=== PATIENT | female | born 1970 | race Caucasian/White ===

== ENCOUNTER → 2017-06-07 | Outpatient (CLI) | payer BC, OTHER ==
[~2017-06-07] MED LIST: GADOBUTROL 10 ML VIAL IVP ONE
== END ==
LOC: FIMAGING 19:06
PROVIDERS: ATTEND Physician Assistant Surgical
DX: Z98.1 Arthrodesis status (principal); G93.9 Disorder of brain, unspecified
CPT/HCPCS: A9585

== ENCOUNTER → 2018-06-12 | Outpatient (CLI) | payer OTHER | LOC: FIMAGING 09:45 | PROVIDERS: ATTEND Orthopaedic Surgery | DX: S83.242A Other tear of medial meniscus, current injury, left knee, initial encounter (principal); M23.42 Loose body in knee, left knee; M25.462 Effusion, left knee ==

== ENCOUNTER 2018-06-25 11:32 | Day surgery (SDC) | payer OTHER ==
--- NOTE | 2018-06-24 13:33 | GHP ---
[f rep st] PREOP HISTORY AND PHYSICAL DATE OF ADMISSION: 06/25/2018 HISTORY: The patient is a 48-year-old female who presents with left knee pain and swelling. In 2017, she slipped on the ice and she developed a significant effusion. She has anteromedial knee pain as well. She has had mechanical symptoms, including catching and some locking. She has tr ied anti-inflammatory medications, bracing her knee, rest, and continues to have progressive symptoms . Her left knee shows an effusion. She has tenderness around the medial patella, stable ligamentous exam, medial joint line tenderness, and a positive medial Judd test. Her MRI shows a posterior horn medial meniscal tear with a large chondral loose body in the medial aspect of the patellofemoral compartment. 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 I recommended arthroscopy of her left knee to address the meniscal tear, as well as to provide chondroplasty work and removal of the chondral loose body. On inspection of the patellof emoral articulation, she may benefit from a lateral release and I have her permission to do so. PAST MEDICAL HISTORY: She does have a history of allergic asthma. PAST SURGICAL HISTORY: She lists no surgeries. ALLERGIES: She has an allergy to latex and sulfa. MEDICATIONS: Include Cymbalta, gabapentin. SOCIAL HISTORY: She is a nonsmoker. REVIEW OF SYSTEMS: Negative for cardiopulmonary disease. 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 PHYSICAL EXAM: GENERAL: The patient is a well-developed, well-nourished female in no apparent distr ess. HEAD AND NECK: Normocephalic, atraumatic. CHEST: Clear. CARDIOVASCULAR: Regular rate and r hythm. ABDOMEN: Soft. NEUROLOGIC: She is alert and oriented x3. EXTREMITIES: Examination of the left knee shows range of motion from 5 degrees to 140 degrees and a moderate effusion. She is tende r around the medial patella and the medial synovium. Negative anterior drawer. No posterior sag. C ollateral ligaments are stable. Negative pivot shift. She does have medial joint line tenderness an d a positive medial Judd test. The skin is healthy. Neurovascular exam is intact. IMPRESSION: Left knee has a combination of meniscal pathology, as well as articular chondromalacia, largely patellofemoral with a fairly large loose body. She has an element of patellar maltracking. PLAN: Left knee arthroscopy, I will address the meniscal pathology and I am anticipating chondroplas ty and removal of the loose body. On assessment of her wear pattern of the patellofemoral joint, I h ave her permission to do a lateral release. She has signed a consent form and wishes to proceed. /[id number]/MODL
[2018-06-25] MEDS ORDERED: ceFAZolin 2 GM/DEXTROSE 100 ML IV ONE (11:46)
[2018-06-25] MEDS ORDERED: LR 1,000 ML IV SCH (11:46)
[2018-06-25] MEDS ORDERED: ACETAMINOPHEN 500 MG TAB PO ONE (11:46)
[2018-06-25] MEDS ORDERED: LR 1,000 ML IV ONE (11:50)
[2018-06-25] MEDS ORDERED: BUPIVACAINE 0.5% 30 ML SDV ONE (12:00)
[2018-06-25] MEDS ORDERED: DEPO METHYLPREDNISOLONE 40 MG/ML SDV ONE ×2 (12:00→14:25)
[2018-06-25] MEDS ORDERED: EPINEPHrine 1 MG/ML INJ ONE (12:01)
--- NOTE | 2018-06-25 12:29 | PDANEPAE ---
ANE History of Present Illness Left knee arthroscopy ANE Past Medical History - Cardiovascular History Hx Hypertension: No Hx Arrhythmias: No Hx Chest Pain: No Hx Coronary Artery / Peripheral Vascular Disease: No Hx CHF / Valvular Disease: No Hx Palpitations: No - Pulmonary History Hx COPD: No Hx Asthma/Reactive Airway Disease: Yes Hx Recent Upper Respiratory Infection: No Hx Oxygen in Use at Home: No Hx Sleep Apnea: No Sleep Apnea Screening Result - Last Documented: Negative Pulmonary History Comment: hx of allergy/ exercise induced asthma - Neurologic History Hx Cerebrovascular Accident: No Hx Seizures: No Hx Dementia: No Neurologic History Comment: hx of ACDF - Endocrine History Hx Diabetes: No Hypothyroid: No Hyperthyroid: No Obesity: no - Renal History Hx Renal Disorders: Yes Renal History Comment: hx of kidney stones. hx of uti's - Liver History Hx Hepatic Disorders: No - Neurological & Psychiatric Hx Hx Neurological and Psychiatric Disorders: Yes Neurological / Psychiatric History Comment: depression. anxiety - Cancer History Hx Cancer: No - Congenital Disorder History Hx Congenital Disorders: No - GI History GERD: no Hx Gastrointestinal Disorders: Yes Gastrointestinal History Comment: GERD. celiac disease - Other Health History Other Health History: wears glasses - Chronic Pain History Chronic Pain: Yes (left knee, lumbar and cervical) - Surgical History Prior Surgeries: ACDF c4-7 07/04/15. wisdom teeth. oral surgeries. lasik. artery repair s/p ANE Review of Systems Review of Systems: - Exercise capacity METS (RN): 4 METS ANE Patient History - Allergies Allergies/Adverse Reactions: adhesive tape Allergy (Verified 06/25/18 12:01) banana Allergy (Verified 06/25/18 12:01) gluten Allergy (Verified 06/25/18 12:01) latex Allergy (Verified 06/25/18 12:01) Milk Containing Products [dairy] Allergy (Verified 06/25/18 12:01) mold Allergy (Verified 06/25/18 12:01) orange juice [oranges] Allergy (Verified 06/25/18 12:01) peanut Allergy (Verified 06/25/18 12:01) Pork/Porcine Containing Products [pork] Allergy (Verified 06/25/18 12:01) Poultry [chicken] Allergy (Verified 06/25/18 12:01) Sulfa (Sulfonamide Antibiotics) Allergy (Verified 06/25/18 12:01) dust Allergy (Uncoded 06/25/18 12:01) lobster Allergy (Uncoded 06/25/18 12:01) trees Allergy (Uncoded 06/25/18 12:01) - Home Medications Home Medications: Aleve 2 tab BID 06/24/18 [Last Taken 06/20/18] Belbuca 06/24/18 [Last Taken 06/25/18] Cymbalta 06/24/18 [Last Taken 06/25/18] Gabapentin 06/24/18 [Last Taken 06/25/18] Herbals/Supplements -Info Only 06/24/18 [Last Taken 06/20/18] - NPO status NPO Status: no food or drink >8 hours NPO Since - Liquids (Date): 06/25/18 NPO Since - Liquids (Time): 10:00 NPO Since - Solids (Date): 06/24/18 NPO Since - Solids (Time): 22:00 - Anes Hx Anes Hx: no prior problems - Smoking Hx Smoking Status: Never smoked Marijuana use: No - Alcohol Use Alcohol Use: None - Family Anes Hx Family Anes Hx: none Family Hx Anesthesia Complications: none ANE Labs/Vital Signs - Vital Signs Blood Pressure: 134/97 Heart Rate: 81 Respiratory Rate: 16 O2 Sat (%): 95 Height: 165.1 cm Weight: 68 kg ANE Physical Exam - Airway Neck exam: decreased ROM Mallampati Score: Class 1 Mouth exam: normal dental/mouth exam, poor dentition - Pulmonary Pulmonary: no respiratory distress, no rales or rhonchi - Cardiovascular Cardiovascular: regular rate and rhythym, no murmur, rub, or gallop - ASA Status ASA Status: II ANE Anesthesia Plan Anesthesia Plan: general endotracheal anesthesia Regional Anesthesia: adductor canal FNB
[2018-06-25] MEDS ORDERED: MIDAZOLAM 2 MG/2 ML VIAL IVP ONE (12:35)
[2018-06-25] MEDS ORDERED: PROPOFOL 200 MG/20 ML VIAL ONE ×2 (13:06→14:00)
[2018-06-25] MEDS ORDERED: fentaNYL 250 MCG/5 ML INJ ONE (13:06)
[2018-06-25] MEDS ORDERED: PROPOFOL/EMULSION 500 MG/50 ML BOTTLE IV ONE (13:06)
--- NOTE | 2018-06-25 13:34 | PDHPUP ---
History & Physical Update H&P update statement: This history and physical update is based on an assessment of the patient which was completed after admission or registration (within 24 hours), but prior to the surgery/procedure. no change H&P update: no change in patient's condition since H&P completed (no change)
[2018-06-25] MEDS ORDERED: DEXAMETHASONE 4 MG/ML VIAL ONE (13:59)
[2018-06-25] MEDS ORDERED: ONDANSETRON 4 MG/2 ML VIAL ONE (13:59)
[2018-06-25] MEDS ORDERED: ACETAMINOPHEN 500 MG TAB PO PRN (15:04)
[2018-06-25] MEDS ORDERED: oxyCODONE IR 5 MG TAB PO PRN (15:04)
[2018-06-25] MEDS ORDERED: fentaNYL 100 MCG/2 ML INJ IVP PRN (15:04)
[2018-06-25] MEDS ORDERED: HYDROmorphONE/DILAUDID 2 MG/ML INJ IVP PRN (15:04)
[2018-06-25] MEDS ORDERED: HYDROCODONE/APAP 5/325 TAB PO PRN (15:04)
[2018-06-25] MEDS ORDERED: PROMETHAZINE HCL 25 MG/ML INJ IVP PRN (15:04)
[2018-06-25] MEDS ORDERED: ONDANSETRON 4 MG/2 ML VIAL IVP PRN (15:04)
[2018-06-25] MEDS ORDERED: NALOXONE HCL 0.4 MG/ML INJ IVP PRN (15:04)
--- NOTE | 2018-06-25 15:17 | GOP ---
[f rep st] OPERATIVE REPORT DATE OF OPERATION: SURGEON: Curtis Danielle MD ANESTHESIOLOGIST: Lisbeth Breen M.D. PREOPERATIVE DIAGNOSIS: Left knee medial meniscal tear, patellofemoral loose body, patellofemoral ch ondromalacia. POSTOPERATIVE DIAGNOSIS: Left knee medial meniscal tear, patellofemoral loose body, patellofemoral c hondromalacia. PROCEDURE PERFORMED: Left knee arthroscopy, partial medial meniscectomy, removal of patellofemoral c hondral loose body, patellofemoral chondroplasty. FINDINGS: Exam under anesthesia demonstrates good motion and ligament stability. She has a small ef fusion. On arthroscopy, the patellofemoral joint is significantly abnormal, the trochlear groove is fairly shallow, there is a chondral flap that is about 1.5 cm x 1 cm in dimension hinging on a flap. It originates from the medial aspect of the trochlear groove. It is still attached there and looks to be relatively acute. Beyond that, there is diffuse chondromalacia throughout the patellofemoral j oint, grade 2 to 3. Though the chondromalacia does favor the lateral aspect of the patellofemoral kamron int more so than the medial side, the new chondral defect is on the medial side. Overall assessment of the patellofemoral joint is it has fairly diffuse wear and her patellar mobility is reasonable so I did not proceed with a lateral release. In the notch, the ACL is intact. In the medial compartmen t, there is some mild grade 1-2 chondromalacia on the medial weightbearing surfaces, but there is a s ignificant degenerative posterior horn meniscal tear. It is complex. It has fraying flaps as well a s a horizontal component, involves about the inner 1/2 to 2/3 of the posterior horn. The lateral com partment is in the best shape. The articular surfaces had minimal chondromalacia and the lateral men iscus is stable and intact. SPECIMENS: None. ESTIMATED BLOOD LOSS: Minimal. INDICATIONS: The patient is a 48-year-old female, who presents with left knee pain, swelling. There is a more acute component involving a medial meniscal tear as well as a chondral flap arising from t he trochlear groove and a more chronic element of patellofemoral chondromalacia. Arthroscopy is plan abimael to address these issues. DESCRIPTION OF PROCEDURE: The patient was taken to the operating room, placed supine on the operatin g table, placed under general anesthetic with laryngeal mask ventilation. She received 2 g of IV Anc ef. A tourniquet was fit high on the left thigh. The left thigh was leg miramontes. Knee wa s prepped and draped thoroughly with chlorhexidine for arthroscopy in the usual fashion. I used yanni mccabe arthroscopy portals and inspected the entire joint with the above-noted findings. I addressed t he medial meniscus with a basket punch and a rotary shaver ellipsing the meniscus back to a stable ri m. In the patellofemoral space, I used a basket punch to release the chondral flap down to a small s talk. I enlargement one of the portals slightly and used a grasping forceps and I pulled the fragmen t out in its entirety and I used the shaver to smooth this chondral defect around the edges and to al so smooth the undersurface of the patella. My thought process involving not doing a lateral release is described in the Findings. The joint was irrigated. It had a lot of inflammation in it and synov itis, so I placed 1 cc of Depo-Medrol 40 mg/cc and 15 cc of 0.5% plain Marcaine in the joint. The po rtals were closed with 4-0 Prolene. The wounds were dressed with Betadine-soaked Adaptic, 4 x 4, selam rile Webril, and a long-leg SHANON stocking. There were no complications. DRAINS: None. COUNTS: All counts correct. The patient was taken in stable condition to recovery. I did not use the tourniquet, so tourniquet t leticia was 0. /[id number]/MODL
--- NOTE | 2018-06-25 15:19 | POSTANESTH ---
Post Anesthetic Evaluation Cardiovascular Status: Normal, Stable Respiratory Status: Normal, Stable Level of Consciousness/Mental Status: Can Participate in Eval Pain Control: Adequate, Prn Tx Ordered Nausea/Vomiting Control: Adequate, Prn Tx Ordered Complications Possibly Related to Anesthesia: None Noted
[2018-06-25 17:35] VITALS: BP 120/81
== END 2018-06-25 16:30 | disposition home or self-care (01) ==
LOC: FSGY 11:32
PROVIDERS: ATTEND Orthopaedic Surgery
PROC: 0SBD4ZZ Excision of Left Knee Joint, Percutaneous Endoscopic Approach (ICD-10-PCS; principal; 2018-06-25 13:00)
DX: S83.232A Complex tear of medial meniscus, current injury, left knee, initial encounter (principal); W00.0XXA Fall on same level due to ice and snow, initial encounter; M22.42 Chondromalacia patellae, left knee; M23.42 Loose body in knee, left knee; M25.462 Effusion, left knee; K21.9 Gastro-esophageal reflux disease without esophagitis; Z87.442 Personal history of urinary calculi; Z87.440 Personal history of urinary (tract) infections; Z88.2 Allergy status to sulfonamides
CPT/HCPCS: J0171; J0690; J1030; J1100; J2250; J2405; J2704; J3010